=== PATIENT | male | born 1985 | race Caucasian/White ===

== ENCOUNTER 2017-05-12 11:55 | Emergency (ER) | payer MEDICAID ==
[2017-05-12 12:14] VITALS: BP 142/87
[2017-05-12] MEDS ORDERED: Diphtheria/Tetanus Toxoids,Adult (Td) 0.5 ML SDV IM ONE (12:55)
[2017-05-12] MEDS ORDERED: Bacitracin Oint 1 GM U/D Packet TOP ONE (13:00)
[2017-05-12] MEDS ORDERED: Lidocaine 1% 20 ML MDV INJECT ONE (13:00)
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
--- NOTE | 2017-05-12 13:18 | CR ---
Knee 1V or 2V Lt HISTORY: Laceration. COMPARISON: None FINDINGS: No fracture or effusion. Normal joint space preservation.
[2017-05-12] MEDS ORDERED: Ibuprofen 600 MG Tab PO ONE (13:53)
== END 2017-05-12 14:12 | disposition home or self-care (01) ==
LOC: JP.ED 11:55
DX: S81.012A Laceration without foreign body, left knee, initial encounter (principal); Z88.8 Allergy status to other drugs, medicaments and biological substances; Z96.22 Myringotomy tube(s) status; Z98.890 Other specified postprocedural states; X58.XXXA Exposure to other specified factors, initial encounter
CPT/HCPCS: 12001; 73560; 90471; 90714; 99284; A9270

== ENCOUNTER 2019-07-07 13:07 | Emergency (ER) | payer MEDICAID ==
[2019-07-07 13:37] VITALS: BP 137/87; PULSE 73
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
== END 2019-07-07 14:42 | disposition home or self-care (01) ==
LOC: JP.ED 13:07
DX: G43.109 Migraine with aura, not intractable, without status migrainosus (principal); R00.2 Palpitations; Z87.891 Personal history of nicotine dependence; Z88.1 Allergy status to other antibiotic agents
CPT/HCPCS: 99284